=== PATIENT | male | born 1990 ===

== ENCOUNTER 2023-03-11 06:07 | Observation (INO) | payer OTHER, SELFPAY ==
--- NOTE | ~2023-03-11 | XR_ITS ---
EXAMINATION: CR WRIST, LEFT CLINICAL INFORMATION: Pain. Injury. COMPARISON: Contralateral right wrist dated 02/09/2016. TECHNIQUE: PA, lateral, and oblique views of the left wrist. FINDINGS: 3 mm of negative ulnar variance is seen no evidence of Kienbock's disease noted. No acute fracture or dislocation or significant arthritic change. No soft tissue calcifications or radiopaque foreign body. Mild diffuse soft tissue swelling about the wrist may be present. XR/XR wrist LT min 3V IMPRESSION: 1. No acute fracture or dislocation. 2. Mild negative ulnar variance. 3. Mild diffuse soft tissue swelling about the wrist.
[2023-03-11 06:27] VITALS: BP 135/95; PULSE 75; RESP 16; TEMP 36.9; O2SAT 97; BMI 33.8
--- NOTE | 2023-03-11 06:34 | ED_ITS ---
HPI - Animal Bite General Chief Complaint: Animal Bite Stated Complaint: Dog bite L hand Time Seen by Provider: 03/11/23 06:32 Source: patient Mode of arrival: ambulatory Limitations: no limitations History of Present Illness HPI narrative: Patient is a 32 year old assigned male at with no reported medical history presenting to the emergency department today with left wrist pain. Patient states that on 03/10/2023 he was bit by his cousins friends dog. Patient states that his left wrist is the only place he was bit and the pain is getting worse. Patient denies any head strike or loss of consciousness with the incident. Patient denies any dizziness, lightheadedness, abdominal pain, nausea, vomiting, fever, chills, blurry vision, double vision, loss of vision, chest pain, difficulty breathing, shortness of breath, back pain, night sweats, pain with urination, increased urinary frequency, increased urinary urgency, blood in his urine or stool, syncope or a near syncopal episode, bowel incontinence, bladder incontinence, bowel retention, bladder retention, or any other complaints at this time. MD complaint: animal bite Onset (ago): day(s) (1) Animal: dog Description of animal: unknown animal and immunizations UTD Mechanism: bite Location: other (left wrist) Pain description: dull and constant Severity scale (1-10): 5 Related Data Patient tetanus UTD: No Allergies Allergy/AdvReac Type Severity Reaction Status Date / Time No Known Allergies Allergy Unverified 06/03/20 17:55 Review of Systems Constitutional: Constitutional: Reports no additional constitutional complaints, Denies chills, Denies fever(s) and Denies night sweats Eyes: Eyes: Reports no additional eye complaints, Denies blurry vision, Denies change in vision, Denies diplopia, Denies eye discharge, Denies loss of vision and Denies eye pain ENT: Denies dizziness Cardiovascular: Cardiovascular: Reports no additional cardiovascular complaints, Denies chest pain, Denies lightheadedness, Denies Loss of Consciou sness and Denies dyspnea Respiratory: Respiratory: Reports no additional respiratory complaints and Denies dyspnea Gastrointestinal: Gastrointestinal: Reports no additional gastrointestinal co mplaints, Denies abdominal pain, Denies melena, Denies hematochezia, Denies change in bowel habits and Denies change in stool character Genitourinary: Genitourinary: Reports no additional male genitourinary complaints, Denies hematuria, Denies oliguria, Denies difficulty urinating, Denies dysuria, Denies urinary frequency, Denies urinary hesitancy, Denies urinary incontinence and Denies urinary urgency Musculoskeletal: Musculoskeletal: Reports no additional musculoskeletal complaints, Denies numbness and Denies tingling Comments: left wrist pain Neurologic: Denies dizziness, Denies loss of vision, Denies numbness and Denies tingling Psychiatric: Psychiatric: Reports no additional psychiatric complaints Endocrine: Endocrine: Reports no additional endocrine complaints Hematologic/Lymphatic: Hematologic/Lymphatic: Reports no additional hem atologic/lymphatic complaints Allergic/Immunologic: Allergic/Immunologic: Reports no additional allergic/immunologic complaints PMFSH Past Medical History Attestation statement: The following information was validated with the patient. Source: old records reviewed and nursing notes reviewed Social History Social History Advance Directives: No Advance Directives Information Provided: No Physical Exam ED Vital Signs: Vital Signs - 24 hr 03/11/23 06:27 03/11/23 08:31 Temperature 98.4 F 98.8 F Pulse Rate 75 49 L Respiratory Rate 16 16 Blood Pressure 135/95 H 112/75 Pulse Oximetry 97 96 Oxygen Delivery Method Room Air Room Air BMI result Body Mass Index 33.8 Const General: cooperative, no acute distress, alert and awake Nutritional Appearance: well nourished Orientation/consciousness: patient oriented x3 Limitations: no limitations HENMT Head: Yes normal to inspection and Yes atraumatic Ears: hearing grossly normal bilaterally and external ears normal General nose exam: Normal external nose present, no nasal discharge noted and no epistaxis Face and sinus: Yes normal facial exam, No abrasion and No laceration Mouth: Normal oral and palatal mucosa present, no drooling and no muffled voice Eyes General: appearance normal, both eyes and all related structures Periorbital: periorbital findings normal Eyelids: Yes eyelids normal Conjunctivae: conjunctivae normal Pupils: Equal, round and reactive pupils present EOM: EOMs intact bilaterally Neck Neck: Yes normal visual inspection, Yes full ROM and Yes no lymphadenopathy Chest Chest palpation & inspection: normal inspection of the chest Resp Effort & Inspection: normal respiratory effort and able to speak in complete sentences GI Inspection: Yes normal to inspection Neuro General: patient oriented x3 and moves all extremities Cranial nerves: Yes Equal, round and reactive pupils present Cognition (Neuro): normal cognition Motor exam (neuro): 5/5 motor strength present throughout Sensory Exam: Normal double simultaneous stimulation for sensation Coordination: [id number] test normal Extrem Other: significantly limited ROM of the left wrist secondary to pain General: Yes capillary refill normal Psych Appearance: grossly normal Mental Status: mental status grossly normal Affect: normal affect Attitude: cooperative Thought process: Normal thought process present Thought content: Normal thought content present Insight: Good insight present (Psych) Medications Administered Discontinued Medications Generic Name Dose Route Start Last Admin Trade Name Freq PRN Reason Stop Dose Admin Diphtheria/Tetanus/Acell Pertussis 0.5 ml 03/11/23 06:39 03/11/23 07:46 Diphth,Pertus(Acell),Tet Adult 0.5 Ml Syringe IM 03/11/23 06:40 0.5 ml .ONCE ONE Administration Piperacillin Sod/Tazobactam 50 mls @ 100 mls/hr 03/11/23 06:39 03/11/23 08:20 Sod 3.375 gm/ Sodium Chloride IV 03/11/23 07:08 Infused ONCE ONE Infusion Oxycodone HCl 10 mg 03/11/23 06:38 03/11/23 07:40 Oxycodone Hcl Immed Release 5 Mg Tablet PO 03/11/23 06:39 10 mg ONCE ONE Administration Medical Decision Making Medical Decision Making [facility] Narrative: Patient is a 32 year old assigned male at with no reported medical history presenting to the emergency department today with a dog bite to his left wrist. Patient's physical exam was as noted in the physical exam portion of this chart. Patient's blood work was grossly normal with the exception of an elevated CRP at 2.79. Patient's left wrist x-ray showed no acute julien process. I spoke with the orthopedic team who recommended the patient be admitted to medicine with IV antibiotics and they would follow the case. I spoke with the hospitalist team who agreed to admission. I explained my physical exam findings as well as all test results to the patient. I answered all questions asked by the patient. Patient received a dose of pain medication and IV Zosyn. Patient verbalized agreement and understanding with this treatment plan and admission. Differential Diagnosis Differential Diagnoses: The differential diagnosis associated with the presentation includes cellulitis, dog bite, septic joint Admission/Observation Consideration of admission/observation: Escalation of care including admission/observation considered Patient to be admitted to medicine. Consult Healthcare Provider Management of the patient was discussed with: Hospitalist (agreed to admission.) and Aerial Installer (spoke with the orthopedic team as noted in the MDM portion of this chart. ) Lab Data [facility] Lab Attestation statement: I reviewed the patient's lab results. My interpretation of these studies and their corresponding values is that they are grossly normal with the exception of the elevated CRP at 2.79. 03/11/23 08:15 03/11/23 08:15 Labs: Lab Results 03/11/23 03/11/23 03/11/23 Range/Units 08:15 08:15 08:15 WBC 7.8 (4.8-10.8) X10*3/uL RBC 4.36 L (4.60-5.80) X10*6/uL Hgb 14.5 (14.0-18.0) g/dl Hct 39.8 L (42.0-52.0) % MCV 91.3 (80.0-98.0) fL MCH 33.3 H (27.0-33.0) pg MCHC 36.4 H (31.0-36.0) g/dl RDW 11.9 (11.0-16.0) % Plt Count 217 (160-400) X10*3/uL MPV 8.8 L (9.4-12.4) fL Immature Gran % (Auto) 0.6 H (0.0-0.4) % Neut % (Auto) 70.1 (45-73) % Lymph % (Auto) 19.1 L (20-40) % [place] % (Auto) 8.8 (2-11) % Eos % (Auto) 1.0 (0-4) % Baso % (Auto) 0.4 (0-2) % Lymph # (Auto) 1.5 (1.2-4.9) X10*3/uL [place] # (Auto) 0.7 (0.1-1.2) X10*3/uL Eos # (Auto) 0.1 (0.0-0.4) X10*3/uL Baso # (Auto) 0.0 (0.0-0.2) X10*3/uL Abs Immat Gran (auto) 0.05 H (0.00-0.03) X10*3/uL Absolute Neuts (auto) 5.4 (2.0-8.3) x10*3/uL Absolute Nucleated RBC 0.000 (0.0-0.012) X10*3/uL Nucleated RBC % (auto) 0.0 (0.0-0.2) /100WBC ESR 4 (0-15) MM/HR Sodium 138 (135-145) mmol/L Potassium 4.2 (3.3-5.1) mmol/L Chloride 107 (96-108) mmol/L Carbon Dioxide 23 (22-29) mmol/L Anion Gap 12 (12-20) BUN 11 (9-16) mg/dL Creatinine 0.87 (0.5-1.4) mg/dL Estim Creat Clear Calc 132.8 Estimated GFR > 60 Random Glucose 106 (60-115) mg/dL Lactic Acid (0.5-2.0) mmol/L Calcium 9.2 (8.4-10.2) mg/dL Total Bilirubin 1.0 (0.0-1.0) mg/dL AST 22 (5-37) U/L ALT 46 H (0-40) U/L Alkaline Phosphatase 82 (39-117) U/L C-Reactive Protein 2.79 H (< or = 0.50) mg/dL Total Protein 6.7 (6.5-8.0) g/dL Albumin 4.0 (3.5-5.0) g/dL 03/11/23 Range/Units 08:15 WBC (4.8-10.8) X10*3/uL RBC (4.60-5.80) X10*6/uL Hgb (14.0-18.0) g/dl Hct (42.0-52.0) % MCV (80.0-98.0) fL MCH (27.0-33.0) pg MCHC (31.0-36.0) g/dl RDW (11.0-16.0) % Plt Count (160-400) X10*3/uL MPV (9.4-12.4) fL Immature Gran % (Auto) (0.0-0.4) % Neut % (Auto) (45-73) % Lymph % (Auto) (20-40) % [place] % (Auto) (2-11) % Eos % (Auto) (0-4) % Baso % (Auto) (0-2) % Lymph # (Auto) (1.2-4.9) X10*3/uL [place] # (Auto) (0.1-1.2) X10*3/uL Eos # (Auto) (0.0-0.4) X10*3/uL Baso # (Auto) (0.0-0.2) X10*3/uL Abs Immat Gran (auto) (0.00-0.03) X10*3/uL Absolute Neuts (auto) (2.0-8.3) x10*3/uL Absolute Nucleated RBC (0.0-0.012) X10*3/uL Nucleated RBC % (auto) (0.0-0.2) /100WBC ESR (0-15) MM/HR Sodium (135-145) mmol/L Potassium (3.3-5.1) mmol/L Chloride (96-108) mmol/L Carbon Dioxide (22-29) mmol/L Anion Gap (12-20) BUN (9-16) mg/dL Creatinine (0.5-1.4) mg/dL Estim Creat Clear Calc Estimated GFR Random Glucose (60-115) mg/dL Lactic Acid 0.9 (0.5-2.0) mmol/L Calcium (8.4-10.2) mg/dL Total Bilirubin (0.0-1.0) mg/dL AST (5-37) U/L ALT (0-40) U/L Alkaline Phosphatase (39-117) U/L C-Reactive Protein (< or = 0.50) mg/dL Total Protein (6.5-8.0) g/dL Albumin (3.5-5.0) g/dL Independent Interpretation I performed an independent interpretation of an: Plain X-Ray Interpretation: My interpretation is in agreement with the radiologist's impression of this imaging study. EXAMINATION: CR WRIST, LEFT CLINICAL INFORMATION: Pain. Injury.? COMPARISON: Contralateral right wrist dated 02/09/2016.? TECHNIQUE: PA, lateral, and oblique views of the left wrist. FINDINGS: 3 mm of negative ulnar variance is seen no evidence of Kienbock's disease noted. No acute fracture or dislocation or significant arthritic change. No soft tissue calcifications or radiopaque foreign body. Mild diffuse soft tissue swelling about the wrist may be present. XR/XR wrist LT min 3V IMPRESSION: 1.? No acute fracture or dislocation. 2.? Mild negative ulnar variance. 3.? Mild diffuse soft tissue swelling about the wrist. ? Dictated By: Belen Hargrove MD Signed By: Electronically signed by Belen Hargrove MD 03/11/23 3637 Radiology Impression Discussion of test interpretation with radiology: I have reviewed the radiologist's reading. Critical Care Time Critical Care Time Critical Care Time: Yes Total Critical Care Time: 30 Attestation: I spent 30 minutes of Critical Care Time with this patient. This does not include time spent on separately reported billable procedures. Discharge Plan Discharge Clinical Impression: Dog bite, Cellulitis Patient Disposition: Admitted As Inpatient
[2023-03-11] MEDS: oxyCODONE HCl Immed Release 5 MG TABLET 10 MG PO (07:40)
[2023-03-11] MEDS: Piperacillin Sodium/Tazobactam 3.375 GM in 0.9 % Sodium Chloride 50 ML IV (07:42)
[2023-03-11] MEDS: Diphth,Pertus(ACell),Tet Adult 0.5 ML SYRINGE IM (07:46)
[2023-03-11 08:21] LABS: MANUAL DIFF FLAG NO
[2023-03-11 08:22] LABS: Basophils Percent Auto 0.4 % (0-2); Eosinophils Absolute Auto 0.1 X10*3/uL (0.0-0.4); Hematocrit 39.8 % (42.0-52.0); Hemoglobin 14.5 g/dl (14.0-18.0); Imm Gran Abs Auto 0.05 X10*3/uL (0.00-0.03); Imm Gran Pct Auto 0.6 % (0.0-0.4); Lymphocytes Absolute Auto 1.5 X10*3/uL (1.2-4.9); Lymphocytes Percent Auto 19.1 % (20-40); Mean Corpuscular HGB Conc 36.4 g/dl (31.0-36.0); Mean Corpuscular Hemoglobin 33.3 pg (27.0-33.0); Mean Corpuscular Volume 91.3 fL (80.0-98.0); Mean Platelet Volume 8.8 fL (9.4-12.4); Monocytes Absolute Auto 0.7 X10*3/uL (0.1-1.2); Monocytes Percent Auto 8.8 % (2-11); Neutrophils Absolute Auto 5.4 x10*3/uL (2.0-8.3); Neutrophils Percent Auto 70.1 % (45-73); Platelet Count 217 X10*3/uL (160-400); Red Blood Count 4.36 X10*6/uL (4.60-5.80); Red Cell Distribution Width 11.9 % (11.0-16.0); White Blood Count 7.8 X10*3/uL (4.8-10.8)
[2023-03-11 08:31] VITALS: BP 112/75; PULSE 49; RESP 16; TEMP 37.1; O2SAT 96
[2023-03-11 08:34] LABS: Lactic Acid 0.9 mmol/L (0.5-2.0)
[2023-03-11 08:37] LABS: Alanine Aminotransferase 46 U/L (0-40); Alkaline Phosphatase 82 U/L (39-117); Anion Gap 12 (12-20); Aspartate Amino Transferase 22 U/L (5-37); Blood Urea Nitrogen 11 mg/dL (9-16); C Reactive Protein 2.79 mg/dL (< or = 0.50); Calcium 9.2 mg/dL (8.4-10.2); Carbon Dioxide 23 mmol/L (22-29); Chloride 107 mmol/L (96-108); Creatinine Clr Calc Pharmacy 132.8; Estimated Glomerular Filt Rate > 60; Glucose Random 106 mg/dL (60-115); Potassium 4.2 mmol/L (3.3-5.1); Sodium 138 mmol/L (135-145); Total Protein 6.7 g/dL (6.5-8.0)
[2023-03-11 09:01] LABS: Erythrocyte Sedimentation Rate 4 MM/HR (0-15)
--- NOTE | 2023-03-11 09:11 | P.HPHOSP_ITS ---
History of Present Illness Date of Service: 03/11/23 Chief Complaint: Dog bite 32 year old man presenting with left wrist pain after a family members dog bit him after trying to break up a fight between 2 dogs. He reported the area continued to worsen with edema and pain. He denied fever, chills, nausea, vomiting, diarrhea. In the ED, wrist xray showed no acute fx or dislocation but some soft tissue swelling. He was given a dose of Zosyn and Tdap booster. He will be placed on obs to watch overnight. Review of Systems Review of Systems: Denies any recent fever chills or decrease in appetite respiratory denies any shortness of breath coverage production cardiovascular denied chest pain gastrointestinal denies any dysphagia abdominal pain nausea vomiting or diarrhea genitourinary denies any dysuria frequency or hematuria musculoskeletal see HPI neuropsych denies any weakness or seizures all other systems reviewed are negative [facility] Medical History (Updated 03/11/23 @ 11:18 by Tosin Robbins NP) No pertinent past medical history Surgical History (Updated 03/11/23 @ 11:18 by Tosin Robbins NP) No pertinent past surgical history Social History Household Members: Significant Other Housing: House Do you presently have visiting nurse or other home services: No Patient Tobacco Use Status: Current everyday Tobacco user Tobacco use type: Cigarette Cigarette Packs Per Day: 0.25 Cigarettes Per Day: 5.0 Years Smoked: 8 Smoked in Last 30 Days: Yes Patient Interested in Nicotine Replacement: No Use of substances other than those prescribed or required for medical reasons: No Currently Displaying Signs/Symptoms of Drug Intoxication Withdrawal: No Have you been hit, kicked, punched, or otherwise hurt by someone within the past year? If so, by whom?: No Do you feel safe in your current relationship?: No Is there a partner from a previous relationship who is making you feel unsafe now?: No Are you made to feel afraid or neglected: No Advance Directives: No Advance Directives Information Provided: No Advance Directives on File: No Do you have thoughts of harming others: None Do you have a plan to hurt others: No Plan Recently lost weight without trying: No Eating poorly because of decreased appetite: No Meds Allergies Allergy/AdvReac Type Severity Reaction Status Date / Time No Known Allergies Allergy Unverified 06/03/20 17:55 Active Medications: Current Medications Pharmacy Consult (Consult Rx Perform Med Rec) 1 each MISCELLANE ONCE PRN PRN Reason: Consult order Home Medications Medication Instructions Recorded Confirmed Last Taken Type multivitamin 1 tab PO DAILY 03/11/23 03/11/23 Unknown History Physical Exam Vital Signs and Narrative: Vital Signs: Last Vital Signs Temp 98.8 F 03/11/23 08:31 Pulse 49 L 03/11/23 08:31 Resp 16 03/11/23 08:31 BP 112/75 03/11/23 08:31 Pulse Ox 96 03/11/23 08:31 O2 Del Method Room Air 03/11/23 08:31 BMI result Body Mass Index 33.8 Appearing in no acute distress head is normocephalic atraumatic eyes pupils are PERRLA sclera is anicteric mouth throat mucous membranes are intact and moist neck is supple no lymphadenopathy, no JVD noted lung sounds are clear to auscultation heart regular rate rhythm, clear S1, S2 positive bowel sounds, abdomen is soft, nontender neuro patient is alert x3, no focal deficits Results Labs 03/11/23 08:15 03/11/23 08:15 Labs: Laboratory Results - last 24 hr 03/11/23 03/11/23 03/11/23 08:15 08:15 08:15 MCV 91.3 MCH 33.3 H MCHC 36.4 H RDW 11.9 Plt Count 217 MPV 8.8 L Immature Gran % (Auto) 0.6 H Neut % (Auto) 70.1 Lymph % (Auto) 19.1 L [place] % (Auto) 8.8 Eos % (Auto) 1.0 Baso % (Auto) 0.4 Lymph # (Auto) 1.5 [place] # (Auto) 0.7 Eos # (Auto) 0.1 Baso # (Auto) 0.0 Abs Immat Gran (auto) 0.05 H Absolute Neuts (auto) 5.4 Absolute Nucleated RBC 0.000 Nucleated RBC % (auto) 0.0 ESR 4 Anion Gap 12 Estim Creat Clear Calc 132.8 Estimated GFR > 60 Random Glucose 106 Lactic Acid Calcium 9.2 Total Bilirubin 1.0 AST 22 ALT 46 H Alkaline Phosphatase 82 C-Reactive Protein 2.79 H Total Protein 6.7 Albumin 4.0 03/11/23 08:15 MCV MCH MCHC RDW Plt Count MPV Immature Gran % (Auto) Neut % (Auto) Lymph % (Auto) [place] % (Auto) Eos % (Auto) Baso % (Auto) Lymph # (Auto) [place] # (Auto) Eos # (Auto) Baso # (Auto) Abs Immat Gran (auto) Absolute Neuts (auto) Absolute Nucleated RBC Nucleated RBC % (auto) ESR Anion Gap Estim Creat Clear Calc Estimated GFR Random Glucose Lactic Acid 0.9 Calcium Total Bilirubin AST ALT Alkaline Phosphatase C-Reactive Protein Total Protein Albumin Imaging Radiologist's Impressions: Impressions Wrist X-Ray 03/11/23 06:55 IMPRESSION: 1. No acute fracture or dislocation. 2. Mild negative ulnar variance. 3. Mild diffuse soft tissue swelling about the wrist. Assessment and Plan (1) Dog bite: Status: Acute Plan 32 year old man admitted with dog bite wound Dog bite no acute fx or dislocation noted to wrist or hand, some soft tissue swelling noted on xray Orthopedic consult pending Augmentin BID elevated extremity pain management DVT prophylaxis with early ambulation full code OBS Time Spent With Patient Time: Total time managing care of this patient today ____ minutes. Quality Stroke Does the patient have a stroke diagnosis?: No VTE Prior VTE?: No VTE Risk Level:: Medical - moderate - high VTE Device Contraindication: Treatment Not Indicated VTE Drug Contraindication: Treatment Not Indicated
--- NOTE | 2023-03-11 09:55 | PHA.MEDREC ---
Pharmacy Consult ? Medication Reconciliation Pharmacy has completed the medication reconciliation.
[2023-03-11 10:49] VITALS: BP 111/82; PULSE 54; RESP 16; TEMP 36.8; O2SAT 97
[2023-03-11] MEDS: Amoxicillin/Potassium Clav 875 MG TABLET PO ×2 (11:33→19:55)
[2023-03-11] MEDS: Ketorolac Tromethamine 30 MG/ML VIAL IVPUSH ×2 (11:33→17:30)
[2023-03-11] MEDS: Acetaminophen 325 MG TABLET 650 MG PO ×2 (11:33→19:57)
[2023-03-11] MEDS: 0.9 % Sodium Chloride Flush 3 ML SYRINGE IVFLUSH ×2 (13:00→19:59)
[2023-03-11 13:03] VITALS: BMI 34.0
[2023-03-11 15:48] VITALS: BP 116/71; PULSE 52; RESP 18; TEMP 36.4; O2SAT 96
--- NOTE | 2023-03-11 16:07 | PC.NURSE ---
14 mg Nicotine Patch placed on Left arm, unable to scan on eMAR
[2023-03-11 19:06] VITALS: BP 129/65; PULSE 80; RESP 16; TEMP 36.6; O2SAT 98
[2023-03-12] MEDS: Ketorolac Tromethamine 30 MG/ML VIAL IVPUSH ×2 (02:39→08:13)
[2023-03-12 03:10] VITALS: BP 109/57; PULSE 66; RESP 16; TEMP 36.2; O2SAT 95
[2023-03-12 07:01] LABS: MANUAL DIFF FLAG NO
[2023-03-12 07:05] LABS: Basophils Percent Auto 0.5 % (0-2); Eosinophils Absolute Auto 0.2 X10*3/uL (0.0-0.4); Eosinophils Percent Auto 1.9 % (0-4); Hematocrit 41.7 % (42.0-52.0); Imm Gran Abs Auto 0.06 X10*3/uL (0.00-0.03); Imm Gran Pct Auto 0.8 % (0.0-0.4); Lymphocytes Absolute Auto 1.8 X10*3/uL (1.2-4.9); Lymphocytes Percent Auto 23.4 % (20-40); Mean Corpuscular Hemoglobin 33.1 pg (27.0-33.0); Mean Corpuscular Volume 92.1 fL (80.0-98.0); Mean Platelet Volume 9.1 fL (9.4-12.4); Monocytes Absolute Auto 0.6 X10*3/uL (0.1-1.2); Monocytes Percent Auto 7.8 % (2-11); Neutrophils Absolute Auto 5.1 x10*3/uL (2.0-8.3); Neutrophils Percent Auto 65.6 % (45-73); Platelet Count 217 X10*3/uL (160-400); Red Blood Count 4.53 X10*6/uL (4.60-5.80); Red Cell Distribution Width 11.9 % (11.0-16.0); White Blood Count 7.8 X10*3/uL (4.8-10.8)
[2023-03-12 07:39] VITALS: BP 110/60; PULSE 56; RESP 16; TEMP 37.1; O2SAT 96
--- NOTE | 2023-03-12 08:03 | P.CONOP_ITS ---
History of Present Illness HPI Consult date: 03/12/23 Chief complaint: Dog Bite Narrative: Mr. Fay is a 32 yo right hand dominant male who presented to the ED on 03/11/23 after sustaining a dog bite from his cousins friends dog on 03/10/23. He reports that the neurology teacher stated the dog was up to date on all vaccinations. The morning after the bite occurred he had increasing redness and swelling. Throughout the day this increased prompting him to report to the ED. He was admitted to the the [facility], began IV abx and orthopedics was consulted. Since the patient began IV abx he reports that the redness and pain has somewhat subsided. He is able to demonstrate more motion this morning. Pain is well controlled. No additional complaints. Review of Systems Review of Systems: Yes all other systems are reviewed and are negative PMFSH Past Medical History Medical History (Updated 03/11/23 @ 11:18 by Tosin Robbins NP) No pertinent past medical history Surgical History Surgical History (Updated 03/11/23 @ 11:18 by Tosin Robbins NP) No pertinent past surgical history Social History Social History Household Members: Significant Other Housing: House Do you presently have visiting nurse or other home services: No Patient Tobacco Use Status: Current everyday Tobacco user Tobacco use type: Cigarette Cigarette Packs Per Day: 0.25 Cigarettes Per Day: 5.0 Years Smoked: 8 Smoked in Last 30 Days: Yes Patient Interested in Nicotine Replacement: No Use of substances other than those prescribed or required for medical reasons: No Currently Displaying Signs/Symptoms of Drug Intoxication Withdrawal: No Have you been hit, kicked, punched, or otherwise hurt by someone within the past year? If so, by whom?: No Do you feel safe in your current relationship?: No Is there a partner from a previous relationship who is making you feel unsafe now?: No Are you made to feel afraid or neglected: No Advance Directives: No Advance Directives Information Provided: No Advance Directives on File: No Do you have thoughts of harming others: None Do you have a plan to hurt others: No Plan Recently lost weight without trying: No Eating poorly because of decreased appetite: No Meds Allergies Allergy/AdvReac Type Severity Reaction Status Date / Time No Known Allergies Allergy Unverified 06/03/20 17:55 Active Medications: Current Medications Acetaminophen (Acetaminophen 325 Mg Tablet) 650 mg PO Q6H PRN PRN Reason: Pain, Mild (Pain Scale 1-3) Last Admin: 03/11/23 19:57 Dose: 650 mg Amoxicillin/Clavulanate Potassium (Amoxicillin/Potassium Clav 875 Mg Tablet) 875 mg PO BID [facility] Last Admin: 03/11/23 19:55 Dose: 875 mg Ketorolac Tromethamine (Ketorolac Tromethamine 30 Mg/Ml Vial) 30 mg IVPUSH Q6H PRN PRN Reason: Pain, Mild (Pain Scale 1-3) Last Admin: 03/12/23 02:39 Dose: 30 mg Nicotine (Nicotine 14 Mg Patch.Td24) 14 mg TRANSDERMA DAILY [facility] Ondansetron HCl (Ondansetron Hcl 4 Mg/2 Ml Vial) 4 mg IVPUSH Q8H PRN PRN Reason: Nausea and Vomiting Pharmacy Consult (Consult Rx Perform Med Rec) 1 each MISCELLANE ONCE PRN PRN Reason: Consult order Sodium Chloride (0.9 % Sodium Chloride Flush 3 Ml Syringe) 3 ml IVFLUSH QSHIFT [facility] Last Admin: 03/11/23 19:59 Dose: 3 ml Home Medications Medication Instructions Recorded Confirmed Last Taken Type multivitamin 1 tab PO DAILY 03/11/23 03/11/23 Unknown History Physical Exam Vital Signs: Vital Signs: Last Vital Signs Temp 98.8 F 03/12/23 07:39 Pulse 56 03/12/23 07:39 Resp 16 03/12/23 07:39 BP 110/60 03/12/23 07:39 Pulse Ox 96 03/12/23 07:39 O2 Del Method Room Air 03/12/23 07:39 BMI result Body Mass Index 34.0 Const: General: cooperative, healthy appearing and no acute distress Resp: Effort & Inspection: normal respiratory effort and able to speak in complete sentences Cardio: Rate: regular rate Peripheral pulses: Peripheral pulses 2+ throughout GI: Palpation (GI): Soft to palpation Skin: Lesions: no lesions Rashes: no rashes Extrem: Other: Left wrist puncture wounds located over the distal radius on the volar aspect and ulnar aspect of the dorsum of the wrist. No areas of fluctuance. No active d rainage. Able to make a closed fist. Able to actively flex and extend the wrist with mild pain. No pain with axial loading of the wrist. No tenderness to palpation of the flexor tendons. Sensation is intact. Capillary refill is brisk. Radial pulse intact. Results Labs 03/12/23 05:22 03/11/23 08:15 Labs: Abnormal lab results 03/11/23 03/11/23 03/12/23 Range/Units 08:15 08:15 05:22 RBC 4.36 L 4.53 L (4.60-5.80) X10*6/uL Hct 39.8 L 41.7 L (42.0-52.0) % MCH 33.3 H 33.1 H (27.0-33.0) pg MCHC 36.4 H (31.0-36.0) g/dl MPV 8.8 L 9.1 L (9.4-12.4) fL Immature Gran % (Auto) 0.6 H 0.8 H (0.0-0.4) % Lymph % (Auto) 19.1 L (20-40) % Abs Immat Gran (auto) 0.05 H 0.06 H (0.00-0.03) X10*3/uL ALT 46 H (0-40) U/L C-Reactive Protein 2.79 H (< or = 0.50) mg/dL H & H 03/11/23 03/12/23 Range/Units 08:15 05:22 Hgb 14.5 15.0 (14.0-18.0) g/dl Hct 39.8 L 41.7 L (42.0-52.0) % All other labs normal. Assessment and Plan (1) Dog bite: Status: Acute (2) Cellulitis: Status: Acute Continue IV abx Encouraged gentle ROM of the hand and wrist - Exercises demonstrated at bedside No concern for septic joint or flexor tenosynovitis No additional orthopedic intervention needed at this time Please reconsult if he does not continue to improve with IV abx Time Spent With Patient Time: Total time managing care of this patient today ____ minutes. Procedures Date of Service Date of Service: 03/12/23
[2023-03-12] MEDS: Amoxicillin/Potassium Clav 875 MG TABLET PO (08:06)
[2023-03-12] MEDS: Nicotine 14 MG PATCH.TD24 TRANSDERMA (08:11)
[2023-03-12] MEDS: 0.9 % Sodium Chloride Flush 3 ML SYRINGE IVFLUSH (08:13)
[2023-03-12 08:44] LABS: Anion Gap 13 (12-20); Blood Urea Nitrogen 10 mg/dL (9-16); Calcium 9.4 mg/dL (8.4-10.2); Carbon Dioxide 23 mmol/L (22-29); Chloride 107 mmol/L (96-108); Creatinine Clr Calc Pharmacy 148.5; Estimated Glomerular Filt Rate > 60; Glucose Random 95 mg/dL (60-115); Potassium 4.3 mmol/L (3.3-5.1); Sodium 139 mmol/L (135-145)
--- NOTE | 2023-03-12 11:00 | MHC.CM.PN ---
PT REPORTS HE LIVES WITH HIS S/O AND TWO CHILDREN PT IS INDEPENDENT WITH CARE, WORKS AND DRIVES HE HAS NO SERVICES AND NO DME PT DECLINES TO COMPLETE A HCP AND SAYS HE DOES NOT HAVE A PCP HE STATES HE DOES KNOW HOW TO OBTAIN A NEW PCP, HE JUST HAS NO NEEDED ONE DCP HOME NO SERVICES VIA SELF TRANSPORT
--- NOTE | 2023-03-12 15:02 | PM.DS ---
DS: Providers Provider Date of Service: 03/12/23 Date of admission: 03/11/23 09:08 Primary care physician: Unknown Physician Consults: 03/11/23 09:08 Consult to Orthopedics Routine Consulting Provider: [facility] [place] Orthopedic Surgeons Reason for consultation: dog bite 03/12/23 11:11 Consult to Infectious Diseases Routine Consulting Provider: [facility] [place] Infectious Disease Reason for consultation: dog bite Has provider been notified: No DS: Diagnosis Discharge Diagnosis (1) Dog bite: Status: Acute (2) Cellulitis: Status: Acute DS: Summary Hospital Course Hospital Course: 32 year old man presenting with left wrist pain after a family members dog bit him after trying to break up a fight between 2 dogs.? He reported the area continued to worsen with edema and pain. He denied fever, chills, nausea, vomiting, diarrhea. In the ED, wrist xray showed no acute fx or dislocation but some soft tissue swelling. He was given a dose of Zosyn and Tdap booster. He will be placed on obs to watch overnight. Dog bite no acute fx or dislocation noted to wrist or hand, some soft tissue swelling noted on xray seen by orthopedic surgery no further workup needed Augmentin BID for 7 more days elevate extremity Time Spent with Patient Time attestation: Total time managing care of this patient today ____ minutes. Discharge coordination time: Greater than 30 minutes Quality: Safe Use of Opioids Does Pt have an Active Cancer Diagnosis on the Problem List?: No Quality: Stroke Does the patient have a stroke diagnosis?: No Physical Exam Vital Signs: Vital Signs: Last Vital Signs Temp 98.8 F 03/12/23 07:39 Pulse 56 03/12/23 07:39 Resp 16 03/12/23 07:39 BP 110/60 03/12/23 07:39 Pulse Ox 96 03/12/23 07:39 O2 Del Method Room Air 03/12/23 07:39 BMI result Body Mass Index 34.0 Appearing in no acute distress head is normocephalic atraumatic eyes pupils are PERRLA sclera is anicteric mouth throat mucous membranes are intact and moist neck is supple no lymphadenopathy, no JVD noted lung sounds are clear to auscultation heart regular rate rhythm, clear S1, S2 positive bowel sounds, abdomen is soft, nontender neuro patient is alert x3, no focal deficits DS: Data Data Completed and Pending Labs on day of discharge: Laboratory Results - last 24 hr 03/12/23 03/12/23 05:22 05:22 WBC 7.8 RBC 4.53 L Hgb 15.0 Hct 41.7 L MCV 92.1 MCH 33.1 H MCHC 36.0 RDW 11.9 Plt Count 217 MPV 9.1 L Immature Gran % (Auto) 0.8 H Neut % (Auto) 65.6 Lymph % (Auto) 23.4 Early % (Auto) 7.8 Eos % (Auto) 1.9 Baso % (Auto) 0.5 Lymph # (Auto) 1.8 Early # (Auto) 0.6 Eos # (Auto) 0.2 Baso # (Auto) 0.0 Abs Immat Gran (auto) 0.06 H Absolute Neuts (auto) 5.1 Absolute Nucleated RBC 0.000 Nucleated RBC % (auto) 0.0 Sodium 139 Potassium 4.3 Chloride 107 Carbon Dioxide 23 Anion Gap 13 BUN 10 Creatinine 0.78 Estim Creat Clear Calc 148.5 Estimated GFR > 60 Random Glucose 95 Calcium 9.4 Preliminary micro results at discharge 03/11/23 08:15 Blood Culture - Preliminary Blood - Venous No growth after 24 hours. 03/11/23 08:15 Blood Culture - Preliminary Blood - Venous No growth after 24 hours. Discharge Plan Discharge Anticipated Discharge Date/Time: 03/12/23 14:50 Patient Disposition: Home, Self-Care Discharge Diagnosis: Cellulitis secondary to dog bite Discharge Medications: New amoxicillin-pot clavulanate 875-125 mg Tablet 1 tab PO BID Qty: 14 0RF oxycodone 5 mg tablet 5 mg PO Q8H PRN (Reason: pain) Qty: 9 0RF Rx Instructions: Partial Fill upon patient request. Continued multivitamin Tablet 1 tab PO DAILY Discharge Orders: Discharge Order (Routine); Ordered 03/12/23 Ordered By: Tosin Robbins Diet: Advance to usual diet Activity on Discharge: As tolerated Stand Alone Forms: Patient Portal Discharge page, Work/School Release Care Plan Goals: Complete resolution of symptoms Health Concerns: Cellulitis secondary to dog bite Plan of Treatment: Take all medications as prescribed Follow-up with primary care provider Assessment: See discharge summary
--- NOTE | 2023-03-12 15:10 | MHC.CM.PN ---
PT WILL DC HOME TODAY WITH NO SERVICES VIA SELF TRANSPORT
== END 2023-03-12 15:44 | disposition home or self-care (01) ==
LOC: HO.ED 09:06 → HO.S3 03-12 10:04 → HO.EDOVER 03-12 11:16
PROVIDERS: Physician Assistant Medical; Admitting Provider Nurse Practitioner Acute Care; Emergency Provider Emergency Medicine Emergency Medical Services; Visit Provider Nurse Practitioner Acute Care
DX: S61.552A Open bite of left wrist, initial encounter (principal); L03.114 Cellulitis of left upper limb; W54.0XXA Bitten by dog, initial encounter; Y93.9 Activity, unspecified; Y92.9 Unspecified place or not applicable; Y99.9 Unspecified external cause status; Z23 Encounter for immunization
CPT/HCPCS: 36415; 73110; 80048; 80053; 83605; 85025; 85652; 86140; 87040; 90471; 90715; 96365; 96375; 96376; 99221; 99284; J1885; J2543

== ENCOUNTER 2024-10-25 10:12 | Emergency (ER) | payer OTHER, SELFPAY ==
[2024-10-25 10:14] VITALS: BP 135/90; PULSE 72; RESP 16; TEMP 36.6; O2SAT 97; BMI 32.3
--- NOTE | 2024-10-25 13:38 | ED.GENADULT ---
HPI - General Adult General Chief complaint: Back Pain/Injury Stated complaint: back and neck pain Time Seen by Provider: 10/25/24 13:19 Source: patient, RN notes reviewed and old records reviewed Mode of arrival: ambulatory Limitations: no limitations History of Present Illness ED Provider: Serena HPI narrative: Patient is a 34-year-old male presenting to the emergency department with complaint of left upper back pain since Sunday. States pain is radiating to the left side of his neck and down left arm. Symptoms began after he picked a toy up off the floor. Denies fall or other recent trauma. States that he has been to the chiropractor as well as massage therapist without any relief of symptoms. Denies weakness,numbness or tingling. Describes as spasming. MD complaint: back pain Onset (ago): day(s) Location: back Radiation: neck and extremity Severity: severe Quality: aching Pain Consistency: constant Relieving factors: none Exacerbating factors: movement Associated symptoms: denies other symptoms Treatments prior to arrival: other Related Data Home Medications ?Medication ?Instructions ?Recorded ?Confirmed multivitamin 1 tab PO DAILY 03/11/23 03/11/23 Previous Rx's ?Medication ?Instructions ?Recorded amoxicillin 875 mg-potassium 1 tab PO BID #14 tabs 03/12/23 clavulanate 125 mg tablet oxycodone 5 mg tablet 5 mg PO Q8H PRN pain #9 tabs 03/12/23 cyclobenzaprine 10 mg tablet 10 mg PO TID PRN muscle spasm #14 10/25/24 tabs ibuprofen 600 mg tablet 600 mg PO Q6H PRN pain #30 tabs 10/25/24 lidocaine 5 % topical patch 1 patch topical DAILY #15 ea 10/25/24 Allergies Allergy/AdvReac Type Severity Reaction Status Date / Time No Known Allergies Allergy Verified 10/25/24 10:17 Review of Systems Review of Systems: As per HPI Yes all other systems are reviewed and are negative Constitutional: Constitutional: Reports as per HPI [facility] Past Medical History Medical History (Updated 10/25/24 @ 16:51 by Winnie Lyons NP) No pertinent past medical history Surgical History (Updated 03/11/23 @ 11:18 by Tosin Robbins NP) No pertinent past surgical history Social History Social History Household Members: Significant Other Housing: House Do you presently have visiting nurse or other home services: No Patient Tobacco Use Status: Current everyday Tobacco user Tobacco use type: Cigarette Cigarette Packs Per Day: 0.25 Cigarettes Per Day: 5.0 Years Smoked: 8 Smoked in Last 30 Days: Yes Use of substances other than those prescribed or required for medical reasons: No Advance Directives: No Advance Directives Information Provided: No service: No Physical Exam ED Vital Signs: Vital Signs - 24 hr 10/25/24 10:14 10/25/24 14:53 Temperature 97.8 F 97.7 F Pulse Rate 72 65 Respiratory Rate 16 14 Blood Pressure 135/90 H 123/88 Pulse Oximetry 97 98 Oxygen Delivery Method Room Air Room Air BMI result Body Mass Index 32.3 Vital signs have been reviewed and appear to be correct. Blood pressure normal. Heart rate normal. Respiratory rate normal. Temperature normal. Oxygen saturation normal. Const General: cooperative, healthy appearing and no acute distress; No comfortable Orientation/consciousness: oriented to person, oriented to place, oriented to time and patient oriented x3 Limitations: no limitations HENMT Head: Yes normocephalic and Yes atraumatic Ears: external ears normal General nose exam: Normal external nose present Face and sinus: Yes face symmetric Mouth: oropharynx normal and moist mucous membranes Throat: Yes uvula midline Eyes Pupils: Equal, round and reactive pupils present Neck Neck: Yes normal visual inspection and Yes supple Resp Effort & Inspection: normal respiratory effort and able to speak in complete sentences Auscultation: clear to auscultation bilaterally Cardio Rate: regular rate Rhythm: regular rhythm Heart sounds: S1 normal heart sound present and S2 normal heart sound present GI Palpation (GI): Soft to palpation and nontender Auscultation: normoactive bowel sounds General: Yes no CVA tenderness Back/Spine/Pelvis Back: no CVA tenderness Cervical Spine: normal cervical lordosis, cervical ROM normal, cervical muscular tenderness (left lateral), No Cervical spine tenderness and No step off deformity Thoracic/Lumbar Spine: thoracic and lumbar spine normal to inspection, paraspinal muscle tenderness on the left in the upper thoracic, No thoracic spinal tenderness and No lumbar spinal tenderness Skin Other: multiple circular ecchymotic areas across entire back from cupping General skin exam: elasticity normal and turgor normal Neuro General: oriented to person, oriented to place, oriented to time, patient oriented x3, gait normal, tone normal, moves all extremities, Normal light touch and pain sensation, no focal motor deficits, CN's II-XI intact bilaterally and deep tendon reflexes 2+ bilaterally Cranial nerves: Yes Equal, round and reactive pupils present Cognition (Neuro): normal cognition Extrem General: Yes full ROM, Yes no pedal edema and Yes no calf tenderness Left upper extremity: shoulder/upper arm Details: tenderness (over trapezius which appears to be in spasm) and abnormal ROM (limited due to pain) Psych Mental Status: mental status grossly normal Affect: normal affect Thought process: Normal thought process present Medications Administered Discontinued Medications Generic Name Dose Route Start Last Admin Trade Name Freq PRN Reason Stop Dose Admin Diazepam 5 mg 10/25/24 14:02 10/25/24 14:17 Diazepam 10 Mg/2 Ml Cartridge IM 10/25/24 14:03 5 mg STAT STA Administration Hydromorphone HCl 2 mg 10/25/24 15:40 10/25/24 15:50 Hydromorphone Hcl 2 Mg/Ml Vial IM 10/25/24 15:41 2 mg ONCE ONE Administration Protocol Ketorolac Tromethamine 30 mg 10/25/24 14:02 10/25/24 14:16 Ketorolac Tromethamine 30 Mg/Ml Vial IM 10/25/24 14:03 30 mg ONCE ONE Administration Medical Decision Making Medical Decision Making [facility] Narrative: Patient is a 34-year-old male presenting to the emergency department with complaint of left upper back pain since Sunday. On exam patient is awake, A+Ox3, VS WNL, afebrile, normal neurological exam without focal deficits, physical exam findings as above. Given reported symptoms and physical exam findings, initial differential includes but is not limited to muscle spasm, thoracic strain, cervical strain. Discussed risk vs benefit of imaging with patient, will defer at this time and patient in agreement with this. Will treat with IM valium and toradol and reassess. Patient denies any change after valium/toradol, will try IM dilaudid. Feel once pain is lower, patient will be able to manage at home with flexeril, ibuprofen, lidocaine patches. Patient reports significant improvement in pain after Dilaudid. Girlfriend will come pick him up from the ED. Discussed with patient that he may need PT to fully resolve symptoms. Will refer to ortho for ongoing symptoms. Return precautions discussed. Patient verbalized understanding of and agreement with plan. Differential Diagnosis Differential Diagnoses: The differential diagnosis associated with the presentation includes as per [facility] External Record Review External record reviewed: Inpatient record, Office record and Outpatient record Prescription Management I considered prescription management with: Pain Medication and Other Critical Care Time Critical Care Time Total Critical Care Time: 40 Attestation: I have personally provided critical care time exclusive of time spent on separately billable procedures. Time includes review of lab data, radiology results, discussion with consultants, and monitoring for potential decompensation. Intervention performed as documented. Discharge Plan Discharge Clinical Impression: Muscle strain of left shoulder, Thoracic back pain Patient Disposition: Home, Self-Care Instructions: Muscle Strain (DC), Thoracic Pain (ED) Additional Instructions: You were evaluated in the emergency department today for back pain. Your evaluation did not show signs of medical conditions requiring emergent intervention at this time. We recommended that you use ibuprofen or Tylenol per package directions every 6 hours as needed for pain. If necessary, you can alternate these medications so that you take one medication every 3 hours. For instance, at noon take ibuprofen, then at 3:00 p.m. take Tylenol, then at 6:00 p.m. take ibuprofen. You have been prescribed a muscle relaxer which you may take every 8 hours as needed for spasms. You have been prescribed 5% topical lidocaine patches which you can wear for up to 12 hours in a 24 hour period. Do not apply heat directly over the patches. Please schedule an appointment for follow-up with your primary care physician this week for further evaluation of your symptoms. Return to the emergency department if you experience worsening back pain, new weakness, numbness, tingling, change of color in your arm or any other new or concerning symptoms. Prescriptions: New ibuprofen 600 mg tablet 600 mg PO Q6H PRN (Reason: pain) Qty: 30 0RF cyclobenzaprine 10 mg tablet 10 mg PO TID PRN (Reason: muscle spasm) Qty: 14 0RF lidocaine 5 % adhesive patch,medicated 1 patch topical DAILY Qty: 15 0RF Rx Instructions: leave on most painful area for up to 12 hrs No Action multivitamin Tablet 1 tab PO DAILY amoxicillin-pot clavulanate 875-125 mg Tablet 1 tab PO BID Qty: 14 0RF oxycodone 5 mg tablet 5 mg PO Q8H PRN (Reason: pain) Qty: 9 0RF Rx Instructions: Partial Fill upon patient request. Referrals: [facility] Orthopedic Surgeons [Provider Group] Print Language: Pashto
[2024-10-25] MEDS: Ketorolac Tromethamine 30 MG/ML VIAL IM (14:16)
[2024-10-25] MEDS: diazePAM 10 MG/2 ML CARTRIDGE 5 MG IM (14:17)
[2024-10-25 14:53] VITALS: BP 123/88; PULSE 65; RESP 14; TEMP 36.5; O2SAT 98
[2024-10-25] MEDS: HYDROmorphone HCl 2 MG/ML VIAL IM (15:50)
[2024-10-25 17:08] VITALS: BP 123/88; PULSE 65; RESP 14; TEMP 36.5; O2SAT 98
== END 2024-10-25 17:09 | disposition home or self-care (01) ==
PROVIDERS: Emergency Provider Emergency Medicine
DX: S46.912A Strain of unspecified muscle, fascia and tendon at shoulder and upper arm level, left arm, initial encounter (principal); X50.9XXA Other and unspecified overexertion or strenuous movements or postures, initial encounter; M54.6 Pain in thoracic spine; F17.210 Nicotine dependence, cigarettes, uncomplicated; Y93.89 Activity, other specified; Y92.019 Unspecified place in single-family (private) house as the place of occurrence of the external cause; Y99.9 Unspecified external cause status
CPT/HCPCS: 96372; 99284; J1171; J1885; J3360

== ENCOUNTER 2024-10-26 14:51 | Emergency (ER) | payer OTHER, SELFPAY ==
--- NOTE | ~2024-10-26 | CT_ITS ---
CLINICAL HISTORY: back pain, numbness of the hand CT cervical spine without contrast Comparison: None Findings: Vertebral alignment is within normal limits. No significant degenerative change. No acute fractures or dislocations. Visualized intracranial contents are unremarkable. No cervical fluid collections or masses. Lung apices are clear. IMPRESSION: No acute findings. This document has been electronically signed by: Amanda Rahman MD on 10/26/2024 17:35:47
[2024-10-26 15:27] VITALS: BP 125/75; PULSE 78; RESP 18; TEMP 37.2; O2SAT 96; BMI 33.4
--- NOTE | 2024-10-26 15:32 | ED.EXTPRO ---
HPI - Extremity Problem General Chief complaint: General Medical Stated complaint: fingers and arm numbness Time Seen by Provider: 10/26/24 19:20 Source: patient Mode of arrival: ambulatory Limitations: no limitations History of Present Illness ED Provider: carlos de la torre NP HPI Narrative: Patient is a 34-year-old male presents emergency department for evaluation. Reports over the past week he has been having pain to his back described as being located between the spine and the shoulder blade just beneath the base of the neck, after leaning to pickler helper a toy in the floor. Was seen in the emergency department yesterday, diagnosed with a strain of the shoulder, he was sent home with a prescription for a muscle relaxant. He states that today he has been experiencing numbness down his arm and into the fingers particularly to the 2nd and 3rd digit which he had not previously been experiencing. Related Data Home Medications ?Medication ?Instructions ?Recorded ?Confirmed multivitamin 1 tab PO DAILY 03/11/23 03/11/23 Previous Rx's ?Medication ?Instructions ?Recorded amoxicillin 875 mg-potassium 1 tab PO BID #14 tabs 03/12/23 clavulanate 125 mg tablet oxycodone 5 mg tablet 5 mg PO Q8H PRN pain #9 tabs 03/12/23 cyclobenzaprine 10 mg tablet 10 mg PO TID PRN muscle spasm #14 10/25/24 tabs ibuprofen 600 mg tablet 600 mg PO Q6H PRN pain #30 tabs 10/25/24 lidocaine 5 % topical patch 1 patch topical DAILY #15 ea 10/25/24 Allergies Allergy/AdvReac Type Severity Reaction Status Date / Time No Known Allergies Allergy Verified 10/26/24 15:30 Review of Systems Review of Systems: Yes all other systems are reviewed and are negative PMFSH Past Medical History Attestation statement: The following information was validated with the patient. Source: old records reviewed Medical History No pertinent past medical history Surgical History No pertinent past surgical history Social History Social History Household Members: Significant Other Housing: House Do you presently have visiting nurse or other home services: No Patient Tobacco Use Status: Current everyday Tobacco user Tobacco use type: Cigarette Cigarette Packs Per Day: 0.25 Cigarettes Per Day: 5.0 Years Smoked: 8 service: No Physical Exam Vital Signs: Vital Signs: Last Vital Signs Temp 98.1 F 10/26/24 19:20 Pulse 76 10/26/24 19:20 Resp 18 10/26/24 19:20 BP 123/85 10/26/24 19:20 Pulse Ox 97 10/26/24 19:20 O2 Del Method Room Air 10/26/24 19:20 BMI result Body Mass Index 33.4 Appearance: Alert.?Oriented to person, place and time. No acute distress.?Normal affect. Neck/ Back: Normal inspection.? Neck supple.??Lower cervical/upper thoracic left paraspinal muscle tenderness upon palpation. No midline tenderness, step-offs, deformities. CVS: Heart sounds normal. Normal heart rate and rhythm.? Pulses normal.?? Respiratory: No respiratory distress.? Lung sounds clear to auscultation bilaterally?? Skin: Skin warm and dry.? Normal skin color.? Extremities: Full range of motion to bilateral upper extremities. 2+ radial pulse bilaterally Neuro: Moves all extremities spontaneously. Sensation intact bilaterally. CN II-XII intact. No focal neuro deficits. Ambulates with normal steady gait. Course Course Course Narrative: This is an RME performed by Carlos De La Torre CNP: Additional HPI, ROS, PE not included below will be deferred to primary provider. Patient is a 34-year-old male presents emergency department for evaluation. Reports over the past week he has been having pain to his back described as being located between the spine and the shoulder blade just beneath the base of the neck, after leaning to pickler helper a toy in the floor. Was seen in the emergency department yesterday, diagnosed with a strain of the shoulder, he was sent home with a prescription for a muscle relaxant. He states that today he has been experiencing numbness down his arm and into the fingers particularly to the 2nd and 3rd digit which he had not previously been experiencing. Plan: CT cervical spine Medical Decision Making Medical Decision Making MDM Narrative: Patient is a 34-year-old male presents emergency department for evaluation of numbness and tingling down the arm and into the 2nd and 3rd digit as per HPI in the setting of recent diagnosed muscular strain. His symptoms appear most consistent with cervical radiculopathy, he has followed with a chiropractor and has only had some improvement. CT of the cervical spine was obtained to exclude fracture, subluxation, or other acute apparent injury and is without abnormal findings. Examination is consistent with C7 radiculopathy, his sensation is intact. The extremity is neurovascularly intact distally. No apparent rashes or lesions. Advised discharge home, rest, ice, conservative treatment, muscle relaxant as prescribed, outpatient follow-up with PCP, worrisome signs and symptoms that would warrant re-evaluation emergency department. All questions answered. Stable for discharge Differential Diagnosis Differential Diagnoses: The differential diagnosis associated with the presentation includes (See narrative above) Admission/Observation Consideration of admission/observation: Escalation of care including admission/observation considered (See narrative above) Radiology Impression Discussion of test interpretation with radiology: I have reviewed the radiologist's reading. Radiologist Impression: CT cervical spine without contrast Comparison: None Findings: Vertebral alignment is within normal limits. No significant degenerative change. No acute fractures or dislocations. Visualized intracranial contents are unremarkable. No cervical fluid collections or masses. Lung apices are clear. IMPRESSION: No acute findings. External Record Review External record reviewed: Outpatient record Prescription Management I considered prescription management with: Pain Medication (See narrative above) Discharge Plan Discharge Clinical Impression: Cervical radiculopathy Patient Disposition: Home, Self-Care Instructions: Cervical Radiculopathy (ED) Additional Instructions: As discussed, CT scan of your cervical spine does not show any acute abnormality. I advised that you continue using the muscle relaxer as previously prescribed. You may apply ice/heat to the area for 10-15 minutes 3-4 times daily. At your discretion you may follow with a chiropractor as you have been. You can take ibuprofen 200 mg, 3 tablets (600mg) every 6-8 hours as needed for pain, in addition to Tylenol 500 mg, 2 tablets (1,000mg) every 4-6 hours as needed for pain, but not to exceed 3 doses daily (3,000mg).? Engage in gentle stretching exercises of the neck/upper back and arms as this may help to alleviate some of the pressure on the nerves. Follow-up with your primary care doctor within the next week. You may return with any new or worsening symptoms or concerns Prescriptions: No Action multivitamin Tablet 1 tab PO DAILY amoxicillin-pot clavulanate 875-125 mg Tablet 1 tab PO BID Qty: 14 0RF oxycodone 5 mg tablet 5 mg PO Q8H PRN (Reason: pain) Qty: 9 0RF Rx Instructions: Partial Fill upon patient request. ibuprofen 600 mg tablet 600 mg PO Q6H PRN (Reason: pain) Qty: 30 0RF cyclobenzaprine 10 mg tablet 10 mg PO TID PRN (Reason: muscle spasm) Qty: 14 0RF lidocaine 5 % adhesive patch,medicated 1 patch topical DAILY Qty: 15 0RF Rx Instructions: leave on most painful area for up to 12 hrs Referrals: Physician,None [Primary Care Provider] - Print Language: Singaporean
[2024-10-26 19:20] VITALS: BP 123/85; PULSE 76; RESP 18; TEMP 36.7; O2SAT 97
[2024-10-26 19:30] VITALS: BP 123/85; PULSE 76; RESP 18; TEMP 36.7; O2SAT 97
== END 2024-10-26 19:31 | disposition home or self-care (01) ==
PROVIDERS: Emergency Provider Emergency Medicine
DX: M54.12 Radiculopathy, cervical region (principal); R20.0 Anesthesia of skin; M54.2 Cervicalgia; Z79.899 Other long term (current) drug therapy
CPT/HCPCS: 72125; 99284

== ENCOUNTER → 2024-10-26 15:36 | Outpatient (BNV) | payer OTHER, SELFPAY | PROVIDERS: Visit Provider Radiology Diagnostic Radiology | DX: M54.12 Radiculopathy, cervical region (principal); R20.2 Paresthesia of skin; R20.0 Anesthesia of skin | CPT/HCPCS: 72125 ==